=== PATIENT | female | born 1945 | race Native Hawaiian/Other Pacific Islander ===

== ENCOUNTER 2018-07-27 09:49 | Outpatient (CLI) | payer MEDICARE | END 2018-07-27 09:50 | disposition home or self-care (01) | LOC: C.MAMMO 09:49 | DX: Z12.31 Encounter for screening mammogram for malignant neoplasm of breast (principal) ==

== ENCOUNTER 2018-08-23 10:15 | Outpatient (CLI) | payer MEDICARE | END 2018-08-23 10:16 | disposition home or self-care (01) | LOC: C.MAMMO 10:15 ==